=== PATIENT | male | born 1965 | race Caucasian/White ===

== ENCOUNTER 2020-11-27 08:32 | Emergency (ER) | payer MEDICAID ==
[~2020-11-27] VITALS: Ht 175.3 cm; Wt 86.4 kg
[2020-11-27 08:36] VITALS: BP 148/93
[2020-11-27] MEDS ORDERED: rabies vaccine (PCEC)/PF 2.5 unit kit IMVAC ONE (09:05)
[2020-11-27] MEDS ORDERED: rabies immune globulin/PF 150 unit/ml inj IMVAC ONE (09:05)
[2020-11-27] MEDS ORDERED: TETanus/Pertussis (Acell)/Diphther VAC/PF (Tdap-Adult) 0.5ml syringe IMVAC ONE (09:05)
== END 2020-11-27 09:48 | disposition home or self-care (01) ==
LOC: ER 08:33
DX: S60.811A Abrasion of right wrist, initial encounter (principal); Z20.3 Contact with and (suspected) exposure to rabies; W55.03XA Scratched by cat, initial encounter; F12.10 Cannabis abuse, uncomplicated; Y93.89 Activity, other specified; Y92.89 Other specified places as the place of occurrence of the external cause; Y99.8 Other external cause status
CPT/HCPCS: 90375; 90471; 90472; 90675; 90715; 99284

== ENCOUNTER 2020-11-30 08:26 | Emergency (ER) | payer MEDICAID ==
[~2020-11-30] VITALS: Ht 175.3 cm; Wt 83.9 kg
[2020-11-30 08:32] VITALS: BP 113/80
[2020-11-30] MEDS ORDERED: rabies vaccine (PCEC)/PF 2.5 unit kit IMVAC ONE (08:45)
[2020-11-30] MEDS ORDERED: AMOX1TAB87 PO (08:45)
== END 2020-11-30 09:12 | disposition home or self-care (01) ==
LOC: ER 08:26
DX: S51.832D Puncture wound without foreign body of left forearm, subsequent encounter (principal); F12.90 Cannabis use, unspecified, uncomplicated; Z20.3 Contact with and (suspected) exposure to rabies; Z72.89 Other problems related to lifestyle; Z79.2 Long term (current) use of antibiotics; W55.01XD Bitten by cat, subsequent encounter
CPT/HCPCS: 90471; 90675; 99283

== ENCOUNTER 2020-12-04 09:09 | Emergency (ER) | payer MEDICAID ==
[~2020-12-04] VITALS: Ht 175.3 cm; Wt 86.4 kg
[~2020-12-04 09:09] MED LIST: AMOX1TAB87 PO
[2020-12-04 09:15] VITALS: BP 125/69
[2020-12-04] MEDS ORDERED: rabies vaccine (PCEC)/PF 2.5 unit kit IMVAC ONE (09:55)
--- NOTE | 2020-12-04 10:42 | NUR ---
PT DC'D BY PROVIDER
== END 2020-12-04 10:42 | disposition home or self-care (01) ==
LOC: ER 09:10
DX: S61.551D Open bite of right wrist, subsequent encounter (principal); F12.10 Cannabis abuse, uncomplicated; Z20.3 Contact with and (suspected) exposure to rabies; W54.0XXD Bitten by dog, subsequent encounter
CPT/HCPCS: 90471; 90675; 99281

== ENCOUNTER 2020-12-11 07:42 | Emergency (ER) | payer MEDICAID ==
[~2020-12-11] VITALS: Ht 175.3 cm; Wt 82.7 kg
[2020-12-11] MEDS ORDERED: rabies vaccine (PCEC)/PF 2.5 unit kit IMVAC ONE (07:50)
[2020-12-11 08:02] VITALS: BP 144/99
== END 2020-12-11 09:04 | disposition home or self-care (01) ==
LOC: ER 07:43
DX: S61.551D Open bite of right wrist, subsequent encounter (principal); Z23 Encounter for immunization; W55.01XD Bitten by cat, subsequent encounter; F12.90 Cannabis use, unspecified, uncomplicated; Z72.89 Other problems related to lifestyle; Z79.899 Other long term (current) drug therapy
CPT/HCPCS: 90471; 90675; 99281

== ENCOUNTER 2021-11-08 04:13 | Emergency (ER) | payer MEDICAID ==
[~2021-11-08] VITALS: Ht 175.3 cm; Wt 89.5 kg
[2021-11-08 04:34] VITALS: BP 127/84
== END 2021-11-08 10:38 | disposition left against medical advice (07) ==
LOC: ER 04:14
DX: R11.10 Vomiting, unspecified (principal); Z53.21 Procedure and treatment not carried out due to patient leaving prior to being seen by health care provider

== ENCOUNTER 2022-11-15 07:25 | Emergency (ER) | payer MEDICAID ==
[~2022-11-15] VITALS: Ht 175.3 cm; Wt 102.7 kg
[2022-11-15 07:25] VITALS: BP 143/91
[2022-11-15] MEDS ORDERED: rabies immune globulin/PF 150 unit/ml inj IMVAC STA (07:37)
[2022-11-15] MEDS ORDERED: TETanus/Pertussis (Acell)/Diphther VAC/PF (Tdap-Adult) 0.5ml syringe IMVAC ONE (07:40)
[2022-11-15] MEDS ORDERED: HYDROcodone/acetaminophen 10/325mg tab PO ONE (07:40)
[2022-11-15] MEDS ORDERED: rabies vaccine (PCEC)/PF 2.5 unit kit IMVAC ONE (07:40)
[2022-11-15] MEDS ORDERED: ceFAZolin 1gm IM kit IM ONE (07:40)
== END 2022-11-15 08:56 | disposition home or self-care (01) ==
LOC: ER 07:25
DX: S60.311A Abrasion of right thumb, initial encounter (principal); Z20.3 Contact with and (suspected) exposure to rabies; G89.29 Other chronic pain; F12.90 Cannabis use, unspecified, uncomplicated; Z72.89 Other problems related to lifestyle; W55.01XA Bitten by cat, initial encounter; Y93.89 Activity, other specified; Y92.89 Other specified places as the place of occurrence of the external cause; Y99.8 Other external cause status
CPT/HCPCS: 90376; 90471; 90472; 90675; 90715; 96372; 99284; J0690

== ENCOUNTER 2022-11-18 07:57 | Emergency (ER) | payer MEDICAID ==
[~2022-11-18] VITALS: Ht 172.7 cm; Wt 100.0 kg
[2022-11-18 08:05] VITALS: BP 131/101
[2022-11-18] MEDS ORDERED: rabies vaccine (PCEC)/PF 2.5 unit kit IMVAC ONE (09:45)
== END 2022-11-18 10:25 | disposition home or self-care (01) ==
LOC: ER 07:58
DX: Z23 Encounter for immunization (principal); S61.412D Laceration without foreign body of left hand, subsequent encounter; G89.29 Other chronic pain; F11.90 Opioid use, unspecified, uncomplicated; Z72.89 Other problems related to lifestyle; W54.0XXD Bitten by dog, subsequent encounter
CPT/HCPCS: 90471; 90675; 99281

== ENCOUNTER 2022-11-22 07:39 | Emergency (ER) | payer MEDICAID ==
[~2022-11-22] VITALS: Ht 175.3 cm; Wt 100.8 kg
[2022-11-22 07:48] VITALS: BP 122/88
[2022-11-22] MEDS ORDERED: rabies vaccine (PCEC)/PF 2.5 unit kit IMVAC ONE (08:40)
== END 2022-11-22 09:14 | disposition home or self-care (01) ==
LOC: ER 07:40
DX: S61.431D Puncture wound without foreign body of right hand, subsequent encounter (principal); S61.432D Puncture wound without foreign body of left hand, subsequent encounter; Z23 Encounter for immunization; W55.01XD Bitten by cat, subsequent encounter
CPT/HCPCS: 90471; 90675; 99281

== ENCOUNTER 2022-11-29 06:27 | Emergency (ER) | payer MEDICAID ==
[~2022-11-29] VITALS: Ht 175.3 cm; Wt 97.7 kg
[2022-11-29 06:31] VITALS: BP 145/106
[2022-11-29] MEDS ORDERED: rabies vaccine (PCEC)/PF 2.5 unit kit IMVAC ONE (07:10)
== END 2022-11-29 07:39 | disposition home or self-care (01) ==
LOC: ER 06:27
DX: Z23 Encounter for immunization (principal); T14.8XXD Other injury of unspecified body region, subsequent encounter; F12.90 Cannabis use, unspecified, uncomplicated; W55.01XD Bitten by cat, subsequent encounter
CPT/HCPCS: 90471; 90675; 99281

== ENCOUNTER 2023-10-09 08:26 | Emergency (ER) | payer MEDICAID ==
[~2023-10-09] VITALS: Ht 175.3 cm; Wt 91.2 kg
[2023-10-09 08:47] VITALS: BP 170/98; PULSE 91; RESP 18; TEMP 98; O2SAT 98
[2023-10-09] MEDS ORDERED: AMOX-117 PO (10:45)
== END 2023-10-09 11:03 | disposition home or self-care (01) ==
LOC: ER 08:27
DX: S61.451A Open bite of right hand, initial encounter (principal); F12.90 Cannabis use, unspecified, uncomplicated; W55.01XA Bitten by cat, initial encounter; Y93.89 Activity, other specified; Y92.89 Other specified places as the place of occurrence of the external cause; Y99.8 Other external cause status
CPT/HCPCS: 99283

== ENCOUNTER 2024-02-04 10:16 | Emergency (ER) | payer MEDICAID ==
[~2024-02-04] VITALS: Ht 177.8 cm; Wt 105.0 kg
[2024-02-04 10:51] LABS: BASOPHILS % (AUTO) 0.2 % (0-1); EOSINOPHILS % (AUTO) 0 % (0-6); HEMATOCRIT 47.8 % (42.0-52.0); HEMOGLOBIN 16.6 g/dl (14.0-17.9); MEAN CORPUSCULAR HEMOGLOBIN 31.1 PG (27.0-31.0); MEAN CORPUSCULAR HGB CONC 34.7 g/dL (33.0-36.5); MEAN CORPUSCULAR VOLUME 89.7 FL (78-98); MEAN PLATELET VOLUME 8.1 FL (7.4-10.4); MONOCYTES # (AUTO) 0.5 X10'3 (0-0.9); MONOCYTES % (AUTO) 6.5 % (2-12); NEUTROPHILS # (AUTO) 5.6 X10'3 (1.8-7.7); NEUTROPHILS % (AUTO) 79.3 % (42-75); PLATELET COUNT 277 X10'3 (140-440); RED BLOOD COUNT 5.33 X10'6 (4.70-6.10); RED CELL DISTRIBUTION WIDTH 13.3 % (11.5-14.5)
[2024-02-04] MEDS: normal saline 1000ml 1,000 ML IV ONE (10:54)
[2024-02-04] MEDS: ondansetron/PF 4mg/2ml inj IV ONE (11:01)
[2024-02-04] MEDS: pantoprazole 40 MG vial IV ONE (11:04)
[2024-02-04 11:06] LABS: APTT 28 SECONDS (22-32)
[2024-02-04 11:10] LABS: ALANINE AMINOTRANSFERASE 21 U/L (12-78); ALBUMIN 3.9 G/DL (3.4-5.0); ALKALINE PHOSPHATASE 73 IU/L (46-116); ANION GAP 12 (8-16); ASPARTATE AMINO TRANSFERASE 27 U/L (10-37); BILIRUBIN,TOTAL 0.7 MG/DL (0.1-1.0); BLOOD UREA NITROGEN 16 MG/DL (7-18); BUN/CREATININE RATIO 13.2 (10.0-20.0); CALCIUM 9.2 MG/DL (8.5-10.1); CHLORIDE 100 MMOL/L (99-107); CREATININE 1.21 MG/DL (0.60-1.10); ETHANOL < 10 MG/DL (<10); GLUCOSE 135 MG/DL (70-104); LIPASE 29 U/L (16-77); MAGNESIUM 1.7 MG/DL (1.5-2.4); POTASSIUM 3.9 MMOL/L (3.5-5.1); SODIUM 136 MMOL/L (135-145); TOTAL CARBON DIOXIDE 23.9 MMOL/L (24-32); TOTAL PROTEIN 7.8 G/DL (6.4-8.2); eCRCL 68 ML/MIN; eGFR 61 ML/MIN
[2024-02-04] MEDS ORDERED: ONDA-243 PO ×2 (13:29→17:54)
[2024-02-04] MEDS ORDERED: PANT-47 PO (13:29)
[2024-02-04 13:51] VITALS: BP 155/105; PULSE 98; RESP 16; TEMP 97.4; O2SAT 97
== END 2024-02-04 13:53 | disposition home or self-care (01) ==
LOC: ER 10:17
DX: R11.2 Nausea with vomiting, unspecified (principal); Z20.822 Contact with and (suspected) exposure to COVID-19; R19.7 Diarrhea, unspecified; K92.1 Melena; G89.29 Other chronic pain; M54.9 Dorsalgia, unspecified; F17.210 Nicotine dependence, cigarettes, uncomplicated; F12.90 Cannabis use, unspecified, uncomplicated; R07.89 Other chest pain
CPT/HCPCS: 36415; 80053; 80320; 83690; 83735; 84484; 85025; 85610; 85730; 87502; 87503; 87811; 93005; 96374; 96375; 99284; J2405; J2470; J7030

== ENCOUNTER 2024-02-17 12:23 | Emergency (ER) | payer MEDICAID ==
[~2024-02-17] VITALS: Ht 175.3 cm; Wt 91.5 kg
[~2024-02-17 12:23] MED LIST changes: -AMOX1TAB87 PO; +ONDA-243 PO; +PANT-47 PO
[2024-02-17 12:31] VITALS: TEMP 98
[2024-02-17 13:06] LABS: BASOPHILS # (AUTO) 0.1 X10'3 (0-0.2); BASOPHILS % (AUTO) 0.7 % (0-1); EOSINOPHILS # (AUTO) 0.3 X10'3 (0-0.9); EOSINOPHILS % (AUTO) 4.5 % (0-6); HEMATOCRIT 42.3 % (42.0-52.0); HEMOGLOBIN 14.7 g/dl (14.0-17.9); LYMPHOCYTES % (AUTO) 25.7 % (21-51); MEAN CORPUSCULAR HEMOGLOBIN 31.4 PG (27.0-31.0); MEAN CORPUSCULAR HGB CONC 34.7 g/dL (33.0-36.5); MEAN CORPUSCULAR VOLUME 90.3 FL (78-98); MEAN PLATELET VOLUME 8.2 FL (7.4-10.4); MONOCYTES # (AUTO) 0.4 X10'3 (0-0.9); NEUTROPHILS # (AUTO) 4.9 X10'3 (1.8-7.7); NEUTROPHILS % (AUTO) 64.1 % (42-75); PLATELET COUNT 307 X10'3 (140-440); RED BLOOD COUNT 4.68 X10'6 (4.70-6.10); RED CELL DISTRIBUTION WIDTH 13.6 % (11.5-14.5); WHITE BLOOD COUNT 7.7 X10'3 (4.5-11.0)
[2024-02-17 13:14] LABS: ALANINE AMINOTRANSFERASE 24 U/L (12-78); ALBUMIN 3.8 G/DL (3.4-5.0); ALBUMIN/GLOBULIN RATIO 1.2 (1.1-1.5); ALKALINE PHOSPHATASE 61 IU/L (46-116); ANION GAP 7 (8-16); ASPARTATE AMINO TRANSFERASE 15 U/L (10-37); BILIRUBIN,TOTAL 0.4 MG/DL (0.1-1.0); BLOOD UREA NITROGEN 13 MG/DL (7-18); CALCIUM 8.9 MG/DL (8.5-10.1); CHLORIDE 104 MMOL/L (99-107); CREATININE 1.18 MG/DL (0.60-1.10); GLUCOSE 107 MG/DL (70-104); LIPASE 306 U/L (16-77); POTASSIUM 4.1 MMOL/L (3.5-5.1); SODIUM 139 MMOL/L (135-145); TOTAL CARBON DIOXIDE 28.1 MMOL/L (24-32); eCRCL 67 ML/MIN; eGFR 63 ML/MIN
[2024-02-17 13:15] VITALS: BP 154/90; PULSE 68; RESP 20; O2SAT 98
[2024-02-17] MEDS: pantoprazole 40mg Tablet.DR PO ONE (13:27)
[2024-02-17] MEDS ORDERED: PANT20TA18 PO (13:49)
[2024-02-18] MEDS ORDERED: pantoprazole 40 MG vial IV SCH (08:00)
== END 2024-02-17 13:59 | disposition home or self-care (01) ==
LOC: ER 12:24
DX: K92.2 Gastrointestinal hemorrhage, unspecified (principal); G89.29 Other chronic pain; M54.9 Dorsalgia, unspecified; F12.90 Cannabis use, unspecified, uncomplicated; Z79.899 Other long term (current) drug therapy
CPT/HCPCS: 36415; 80053; 83690; 85025; 99283